=== PATIENT | male | born 1950 | race Caucasian/White ===

== ENCOUNTER 2020-11-01 12:20 | Emergency (ER) | payer MEDICARE, MEDICAID ==
[~2020-11-01] VITALS: Ht 172.7 cm; Wt 84.5 kg
[2020-11-01] MEDS ORDERED: METO25 PO (12:38)
[2020-11-01] MEDS ORDERED: METF-960 PO (12:38)
[2020-11-01 15:33] VITALS: BP 147/76
== END 2020-11-01 15:35 | disposition home or self-care (01) ==
LOC: EMS 12:23
DX: S90.111A Contusion of right great toe without damage to nail, initial encounter (principal); I10 Essential (primary) hypertension; E11.9 Type 2 diabetes mellitus without complications; Z79.899 Other long term (current) drug therapy; Z79.84 Long term (current) use of oral hypoglycemic drugs; X58.XXXA Exposure to other specified factors, initial encounter; Y93.89 Activity, other specified; Y92.89 Other specified places as the place of occurrence of the external cause; Y99.8 Other external cause status
CPT/HCPCS: 82962; 99283